=== PATIENT | male | born 1995 | race Caucasian/White ===

== ENCOUNTER 2020-12-05 15:26 | Emergency (ER) | payer OTHER ==
[~2020-12-05] VITALS: Ht 180.3 cm; Wt 104.3 kg
[2020-12-05 16:01] VITALS: BP 154/102
== END 2020-12-05 17:18 | disposition home or self-care (01) ==
LOC: ER 15:26
DX: S01.81XA Laceration without foreign body of other part of head, initial encounter (principal); W23.0XXA Caught, crushed, jammed, or pinched between moving objects, initial encounter; Y93.89 Activity, other specified; Y92.89 Other specified places as the place of occurrence of the external cause; Y99.8 Other external cause status
CPT/HCPCS: 12011; 70450; 99284; J2001